=== PATIENT | female | born 1975 | race Caucasian/White ===

== ENCOUNTER 2021-03-12 05:54 | Day surgery (SDC) | payer BC ==
[2021-03-11 12:12] LABS: INR 1.05 (0.85-1.15); PROTHROMBIN TIME 11.4 SEC (9.6-11.6)
[2021-03-11 12:14] LABS: PARTIAL THROMBOPLASTIN TIME 28.2 SEC (26.3-35.5)
[2021-03-11 13:10] VITALS: BP 148/73
[2021-03-12] VITALS (11 sets, daily range): BP systolic 112–126; BP diastolic 69–83
[~2021-03-12] VITALS: Ht 170.2 cm; Wt 97.3 kg
[~2021-03-12 05:54] MED LIST: IBUP-2077 PO
[2021-03-12] MEDS: CEFAZOLIN SODIUM 1 GM VIAL IVP SCH ×2 (06:00→07:44)
[2021-03-12] MEDS ORDERED: LACTATED RINGERS 1000ML 1,000 ML IV ONE (06:15)
[2021-03-12] MEDS ORDERED: ATOR20TA65 PO (06:26)
[2021-03-12] MEDS ORDERED: MIDAZOLAM HCL 1 MG/ML 2ML VIAL ONE (06:42)
[2021-03-12] MEDS ORDERED: PROPOFOL 10 MG/ML 20ML VIAL IV ONE (06:43)
[2021-03-12] MEDS ORDERED: FENTANYL CITRATE PF 50 MCG/1 ML 2ML VIAL ONE (06:43)
[2021-03-12] MEDS ORDERED: SODIUM BICARB [NEONATAL] 4.2% 10ML SYG ONE (07:03)
[2021-03-12] MEDS ORDERED: LIDOCAINE HCL 1% 20 ML VIAL ONE ×2 (07:04→07:41)
[2021-03-12] MEDS ORDERED: ONDANSETRON 4MG INJ ONE (07:10)
[2021-03-12] MEDS ORDERED: IOPAMIDOL 10 ML VIAL ONE (07:46)
[2021-03-12] MEDS ORDERED: NALOXONE HCL 0.4 MG/1 ML ML ONE (08:25)
== END 2021-03-12 10:00 | disposition home or self-care (01) ==
LOC: DAH 05:54
PROVIDERS: ATTEND Neurological Surgery
DX: M53.3 Sacrococcygeal disorders, not elsewhere classified (principal); Z20.822 Contact with and (suspected) exposure to COVID-19; E66.9 Obesity, unspecified; F41.9 Anxiety disorder, unspecified; Z79.01 Long term (current) use of anticoagulants; Z79.899 Other long term (current) drug therapy
CPT/HCPCS: 27096; 36415; 71045; 72202; 85610; 85730; 87635; A4215 ×2; A4221; A4222; A4223; A4663; A6260; C9803; J0690; J1030; J2250; J2310; J2405; J2704; J3010; J3490; J7120; Q9966; 93005